=== PATIENT | female | born 1980 | race Caucasian/White ===

== ENCOUNTER 2022-12-23 14:02 | Emergency (ER) | payer MEDICARE, SELFPAY ==
[2022-12-23] VITALS (11 sets, daily range): BP systolic 127–149; BP diastolic 74–96; PULSE 67–86; RESP 14; TEMP 35.7; O2SAT 97–99; BMI 44.6
--- NOTE | 2022-12-23 14:33 | CRLHL7_ITS ---
For Patients: As a result of the Century Cures Act, medical imaging exams and procedure reports are released immediately into your electronic medical record. You may view this report before your referring provider. If you have questions, please contact your health care provider. INDICATION: Upper abdominal pain. TECHNIQUE: CT abdomen and pelvis without contrast. COMPARISON: None. FINDINGS: Lower chest: Unremarkable. Liver: Normal in size and attenuation. No suspicious masses. Gallbladder and bile ducts: Cholecystectomy. Pancreas: Unremarkable. No mass or inflammation. Spleen: Normal in size. No masses. Adrenal glands: Normal in size. No nodules. Kidneys: Normal in size. No suspicious masses, stones, or hydronephrosis. GI tract: Gastric sleeve. Normal in caliber. No sign of mass or inflammation. Normal appendix. Vasculature: Abdominal aorta is normal in caliber. Lymph nodes: No lymphadenopathy. Peritoneum/Abdominal Wall: Tiny fat containing umbilical hernia. No sign of mass or infiltration. No free air or significant free fluid. Pelvis: Hysterectomy. No pelvic masses. Bones: Unremarkable for age. IMPRESSION: Postsurgical changes of gastric bypass. No acute intra-abdominal/pelvic abnormality including drainable fluid collections or free intraperitoneal air. Please note that all CT scans at this facility use dose modulation, iterative reconstruction, and/or weight-based dosing when appropriate to reduce radiation dose to as low as reasonably achievable. Dictated by Jarad Manley MD @ 12/23/2022 5:38:50 PM (Electronically Signed)
--- NOTE | 2022-12-23 14:33 | CRLHL7_ITS ---
For Patients: As a result of the Cures Act, medical imaging exams and procedure reports are released immediately into your electronic medical record. You may view this report before your referring provider. If you have questions, please contact your health care provider. INDICATION: Chest pain. TECHNIQUE: Chest 2 views. COMPARISON: None. FINDINGS: Cardiovascular and mediastinum: Cardiomediastinal silhouette is within normal limits Lungs and pleural spaces: Lungs are clear. No sign of pleural effusion. No pneumothorax. Bones and soft tissues: No significant findings. IMPRESSION: No acute or significant findings. Dictated by Sadia Zuñiga MD @ 12/23/2022 4:22:16 PM (Electronically Signed)
--- NOTE | 2022-12-23 14:52 | ED.GENADULT ---
HPI - General Adult General Date Seen: 12/23/22 Chief complaint: Abdominal Pain Stated complaint: Dehydration, swelling, possible pancreatitis Time Seen by Provider: 12/23/22 14:09 Source: patient Mode of arrival: ambulatory Limitations: no limitations History of Present Illness HPI narrative: Patient is a 42-year-old female with a history of chronic pain syndrome, fibromyalgia, previous episode of pancreatitis secondary to gallstone presented to emergency department for abdominal pain. She states she was told to come in via provider for dehydration and possible pancreatitis. Yesterday she was having chest pain and arm numbness and EMS was called. She was brought to an outside hospital emergency department and have labs done while she was in triage next. Her symptoms improved and she is waiting for 7 hours so she left. She woke up this morning with improvement in chest pain shortness of breath was still mildly there. She is also having upper abdominal pain. She took a Toradol injection at home this morning at 06:00 she says improved his symptoms. She states she has a kind of feels like her previous pancreatitis but not exactly. Denies fevers, chills, diarrhea, constipation, dysuria. Does admit to some mild lightheadedness. Related Data Home Medications Medication Instructions Recorded Confirmed aripiprazole 20 mg tablet (Abilify) 20 mg PO DAILY 12/23/22 12/23/22 escitalopram oxalate 20 mg tablet 20 mg PO DAILY 12/23/22 12/23/22 (Lexapro) folic acid 1 mg tablet 1 mg PO DAILY 12/23/22 12/23/22 ixekizumab 80 mg/mL subcutaneous 80 mg subcut Q3W 12/23/22 12/23/22 auto-injector (Taltz Autoinjector) ketorolac 30 mg/mL injection 30 mg IM DAILY PRN 12/23/22 12/23/22 syringe lorazepam 1 mg tablet (Ativan) 1 mg PO Q12H PRN 12/23/22 12/23/22 ondansetron 4 mg disintegrating 4 mg PO BID-TID PRN 12/23/22 12/23/22 tablet tramadol 50 mg tablet 50 mg PO BID PRN 12/23/22 12/23/22 Previous Rx's Medication Instructions Recorded cephalexin 250 mg capsule 250 mg PO QID #20 caps 12/23/22 fluconazole 150 mg tablet 150 mg PO Q3D 2 doses #2 tabs 12/23/22 (Diflucan) Allergies Allergy/AdvReac Type Severity Reaction Status Date / Time adhesive Allergy Unknown Verified 12/23/22 14:09 lithium Allergy Unknown Verified 12/23/22 14:09 Penicillins Allergy Unknown Verified 12/23/22 14:09 vancomycin Allergy Unknown Rash Verified 12/23/22 14:09 amoxicillin Allergy Rash Verified 12/23/22 14:09 prednisone AdvReac Unknown Verified 12/23/22 14:09 Sulfa (Sulfonamide AdvReac Unknown Diarrhea Verified 12/23/22 14:09 Antibiotics) Review of Systems Status of ROS: Reports: 10 or more systems reviewed and unremarkable except as noted in History and below PFSH PFS Social History Smoking Status: Current some day smoker What tobacco products do you use: cigarettes Do you use any of these nicotine containing products: None Second hand tobacco smoke exposure: No How often do you have a drink containing alcohol: never How often do you have six or more drinks on one occasion: Never AUDIT-C Alcohol total score: 0 Non-prescribed substance use: marijuana (any form) Exam Narrative: Exam Narrative: Const: Well-nourished, Well-developed, in mild distress Eyes: PERRL, no conjunctival injection, and symmetrical lids HENT: Atraumatic external nose and ears. Moist mucous membranes. Neck: Symmetric, trachea midline, No thyromegaly. CVS: RRR, No murmurs or gallops. Peripheral pulses 2+ and equal in all extremities RESP: Unlabored respiratory effort. Clear to auscultation bilaterally. GI: Mild epigastric and left upper quadrant tenderness, Nondistended, No rebound or guarding. MSK:Extremities w/o deformity, Normal Active ROM Skin: Warm, Dry. No rashes or lesions. Neuro: Normal Muscle tone, No focal neurological deficits. Psych: Awake, Alert, & Oriented x3. Appropriate mood and affect. Const: Vital Signs, click to edit/add: Vital Signs - 24 hr 12/23/22 14:14 12/23/22 15:46 12/23/22 16:31 Temperature 96.2 F L Pulse Rate 85 Pulse Rate [Pulse Oximeter] 86 Respiratory Rate 14 Blood Pressure 127/77 Blood Pressure [Ri ght Upper Arm] 139/74 Pulse Oximetry 98 99 Oxygen Delivery Me thod Room Air 12/23/22 16:34 12/23/22 16:35 12/23/22 16:45 Temperature Pulse Rate 76 70 71 Pulse Rate [Pulse Oximeter] Respiratory Rate Blood Pressure 143/96 H Blood Pressure [Ri ght Upper Arm] Pulse Oximetry 99 99 98 Oxygen Delivery Me thod 12/23/22 17:00 12/23/22 17:02 12/23/22 17:15 Temperature Pulse Rate 67 70 70 Pulse Rate [Pulse Oximeter] Respiratory Rate Blood Pressure 149/94 H Blood Pressure [Ri ght Upper Arm] Pulse Oximetry 97 98 99 Oxygen Delivery Me thod Course Vital Signs Vital signs: Initial Vital Signs Temperature 96.2 F L 12/23/22 14:14 Temperature Source Temporal Artery Scan 12/23/22 14:14 Pulse Rate 86 12/23/22 14:14 Pulse Rhythm Regular 12/23/22 14:14 Respiratory Rate 14 12/23/22 14:14 Blood Pressure 139/74 12/23/22 14:14 Blood Pressure Mean 95 12/23/22 14:14 Blood Pressure Position Sitting 12/23/22 14:14 Pulse Oximetry 98 12/23/22 14:14 Oxygen Delivery Method Room Air 12/23/22 14:14 Vital Signs Temperature 96.2 F L 12/23/22 14:14 Pulse Rate 86 12/23/22 14:14 Respiratory Rate 14 12/23/22 14:14 Blood Pressure 139/74 12/23/22 14:14 Pulse Oximetry 98 12/23/22 14:14 Oxygen Delivery Method Room Air 12/23/22 14:14 Temperature 96.2 F L 12/23/22 14:14 Pulse Rate 70 12/23/22 17:15 Respiratory Rate 14 12/23/22 14:14 Blood Pressure 149/94 H 12/23/22 17:02 Pulse Oximetry 99 12/23/22 17:15 Oxygen Delivery Method Room Air 12/23/22 14:14 Medical Decision Making MDM Narrative Medical decision making narrative: Patient is a 42-year-old female presents emergency department mL going to call back from an ED physician after she left the [facility] Emergency Department before labs came back yesterday. She states she was told her that she thinks she is dehydrated might have pancreatitis. She states he still having some upper abdominal discomfort and states it feels like previous pancreatitis. She also had some chest pain yesterday that has almost completely resolved all today. Do this with 2 abdominal workup and a cardiac workup. CT scan with IV contrast was ordered. Toradol given for pain. Zofran given for nausea. Patient's CBC and CMP showed no concerning abnormalities. Lipase is within normal limits. Unlikely to be pancreatitis at this time. Do not see any signs of liver disease. No other clear signs of infection. Electrolytes within normal limits. Troponin within normal limits. EKG also looks normal in ACS seems unlikely at this time. The patient IV staff working while and CT scan. They tried multiple times to place a new IV and were unsuccessful. Due to this she got CT without contrast. CT shows no concerning abnormalities. Her urinalysis does show signs of a UTI. We will treat her for this. This could be the cause of her symptoms. She states when she gets antibiotics she develops a yeast infection and will be given Diflucan also Lab Data Labs: Lab Results 12/23/22 12/23/22 12/23/22 Range/Units 14:50 15:00 15:10 WBC 5.40 (4.50-11.00) K/uL RBC 4.05 (4.00-5.20) m/uL Hgb 13.4 (12.0-16.0) gm/dL Hct 40.6 (33.0-51.0) % MCV 100 (80-100) fL MCH 33 (26-34) pg MCHC 33 (32-36) gm/dL RDW Coeff of [place] 12.8 (11.5-15.5) % Plt Count 178 (140-440) K/uL Neut % (Auto) 59.8 (42.0-72.0) % Lymph % (Auto) 31.9 (20-44) % [place] % (Auto) 8.1 (0.0-11.0) % Eos % (Auto) 0.0 (0.0-7.0) % Baso % (Auto) 0.0 (0.0-3.0) % Neut # (Auto) 3.23 (1.7-7.0) K/uL Lymph # (Auto) 1.72 (0.90-2.90) K/uL [place] # (Auto) 0.40 (0.00-0.90) K/UL Eos # (Auto) 0.00 (0.00-0.50) K/uL Baso # (Auto) 0.00 (0.00-0.30) K/uL Abs Immat Gran (auto) 0.01 (0.00-0.30) K/uL Imm/Tot Granulo (auto) 0.2 % Sodium 140 (135-149) mmol/L Potassium 4.0 (3.6-5.1) mmol/L Chloride 107 (96-114) mmol/L Carbon Dioxide 26 (20-32) mmol/L Anion Gap 7 (7-15) mEq/L BUN 15 (5-24) mg/dL Creatinine 0.8 (0.5-1.5) mg/dL Estimated Creat Clear 80.75 Estimated GFR 93 ml/min Glucose 83 (60-115) mg/dL Calcium 9.1 (8.4-10.6) mg/dL Magnesium 2.2 (1.5-2.6) mg/dL Total Bilirubin 0.4 (0.1-1.5) mg/dL AST 34 (12-35) U/L ALT 27 (4-35) U/L Alkaline Phosphatase 101 (40-150) U/L Troponin I < 0.01 L (0.01-0.04) ng/mL Total Protein 6.9 (6.0-8.3) g/dL Albumin 4.1 (3.3-5.0) g/dL Lipase 183 (23-300) U/L Urine Color Yellow (Yellow) Urine Appearance Cloudy A (Clear) Urine pH 6.0 (5.0-8.5) Ur Specific [place] >= 1.030 (1.000-1.030) Urine Protein 2+ A (Negative) Urine Glucose (UA) Negative (Negative) Urine Ketones 1+ A (Negative) Urine Blood Negative (Negative) Urine Nitrite Positive A (Negative) Urine Bilirubin 1+ A (Negative) Urine Urobilinogen 1.0 (0.2-1.0) Ur Leukocyte Esterase Negative (Negative) Urine RBC 0-2 (0-2) Urine WBC 2-5 (0-5) Ur Squamous Epith Cells Moderate A (None-Few) Urine Bacteria Many A (None) Imaging Data CT scan abdomen and pelvis: Radiologist's impression: INDICATION: Upper abdominal pain. TECHNIQUE: CT abdomen and pelvis without contrast. COMPARISON: None. FINDINGS: Lower chest: Unremarkable. Liver: Normal in size and attenuation. No suspicious masses. Gallbladder and bile ducts: Cholecystectomy. Pancreas: Unremarkable. No mass or inflammation. Spleen: Normal in size. No masses. Adrenal glands: Normal in size. No nodules. Kidneys: Normal in size. No suspicious masses, stones, or hydronephrosis. GI tract: Gastric sleeve. Normal in caliber. No sign of mass or inflammation. Normal appendix. Vasculature: Abdominal aorta is normal in caliber. Lymph nodes: No lymphadenopathy. Peritoneum/Abdominal Wall: Tiny fat containing umbilical hernia. No sign of mass or infiltration. No free air or significant free fluid. Pelvis: Hysterectomy. No pelvic masses. Bones: Unremarkable for age. IMPRESSION: Postsurgical changes of gastric bypass. No acute intra-abdominal/pelvic abnormality including drainable fluid collections or free intraperitoneal air. Please note that all CT scans at this facility use dose modulation, iterative reconstruction, and/or weight-based dosing when appropriate to reduce radiation dose to as low as reasonably achievable. Dictated by Jarad Manley MD @ 12/23/2022 5:38:50 PM Chest x-ray: Radiologist's impression: INDICATION: Chest pain. TECHNIQUE: Chest 2 views. COMPARISON: None. FINDINGS: Cardiovascular and mediastinum: Cardiomediastinal silhouette is within normal limits Lungs and pleural spaces: Lungs are clear. No sign of pleural effusion. No pneumothorax. Bones and soft tissues: No significant findings. IMPRESSION: No acute or significant findings. Dictated by Sadia Zuñiga MD @ 12/23/2022 4:22:16 PM ECG Data Attestation: I personally reviewed and interpreted this ECG as follows: Interpretation: Normal sinus rhythm with a rate of 89 beats per minute, normal intervals, normal axis, no ST or T-wave abnormalities Discharge Plan Discharge Clinical Impression: UTI (urinary tract infection) Qualifiers: Urinary tract infection type: site unspecified Hematuria presence: without hematuria Qualified Code(s): N39.0 - Urinary tract infection, site not specified Patient Disposition: Home, Self-Care Condition: Stable Instructions: Urinary Tract Infection in Women (DC) Prescriptions: New cephalexin 250 mg capsule 250 mg PO QID Qty: 20 0RF fluconazole [Diflucan] 150 mg tablet 150 mg PO Q3D Qty: 2 0RF No Action lorazepam [Ativan] 1 mg tablet 1 mg PO Q12H PRN ketorolac 30 mg/mL syringe 30 mg IM DAILY PRN tramadol 50 mg tablet 50 mg PO BID PRN ondansetron 4 mg tablet,disintegrating 4 mg PO BID-TID PRN Taltz Autoinjector 80 mg/mL auto-injector 80 mg subcut Q3W escitalopram oxalate [Lexapro] 20 mg tablet 20 mg PO DAILY aripiprazole [Abilify] 20 mg tablet 20 mg PO DAILY folic acid 1 mg tablet 1 mg PO DAILY Follow Up/Referrals: Provider,Not a Local [Primary Care Provider] - Stand Alone Forms: [facility] Info Instructions
[2022-12-23] MEDS: KETOROLAC 15 MG/ML inj IVP ×2 (15:16→17:26)
[2022-12-23 15:18] LABS: Hematocrit 40.6 % (33.0-51.0); Hemoglobin* 13.4 gm/dL (12.0-16.0); Immature Granulocytes Pct Auto 0.2 %; Lymphocytes Percent Auto 31.9 % (20-44); Mean Corpuscular HGB Conc 33 gm/dL (32-36); Mean Corpuscular Hemoglobin 33 pg (26-34); Mean Corpuscular Volume 100 fL (80-100); Monocytes Percent Auto 8.1 % (0.0-11.0); Neutrophils Percent Auto 59.8 % (42.0-72.0); Platelet Count* 178 K/uL (140-440); RDW Coefficient of Variation % 12.8 % (11.5-15.5); Red Blood Count 4.05 m/uL (4.00-5.20)
[2022-12-23 15:19] LABS: Immature Granulocytes Abs Auto 0.01 K/uL (0.00-0.30); Lymphocytes Absolute Auto 1.72 K/uL (0.90-2.90); Neutrophils Absolute Auto 3.23 K/uL (1.7-7.0)
[2022-12-23 15:20] LABS: Appearance Urine Cloudy (Clear); Bilirubin Urine 1+ (Negative); Blood Urine Negative (Negative); Color Urine Yellow (Yellow); Glucose Urine Negative (Negative); Ketones Urine 1+ (Negative); Leukocyte Esterase Urine Negative (Negative); Nitrite Urine Positive (Negative); Protein Urine 2+ (Negative); Specific Gravity Urine >= 1.030 (1.000-1.030)
[2022-12-23 15:23] LABS: Slide Review Reflex No
[2022-12-23 15:26] LABS: RBC Urine 0-2 (0-2); Squamous Epithelial Cell Urine Moderate (None-Few)
[2022-12-23 15:27] LABS: Bacteria Urine Many
[2022-12-23 15:35] LABS: Albumin* 4.1 g/dL (3.3-5.0)
[2022-12-23 15:36] LABS: Chloride* 107 mmol/L (96-114); Sodium* 140 mmol/L (135-149)
[2022-12-23] MEDS: ONDANSETRON 2 MG/ML inj 4 MG IVP (15:36)
[2022-12-23 15:38] LABS: Magnesium* 2.2 mg/dL (1.5-2.6)
[2022-12-23 15:38] LABS: Alkaline Phosphatase* 101 U/L (40-150); Anion Gap 7 mEq/L (7-15); Aspartate Amino Transferase* 34 U/L (12-35); Bilirubin Total* 0.4 mg/dL (0.1-1.5); Blood Urea Nitrogen* 15 mg/dL (5-24); Carbon Dioxide* 26 mmol/L (20-32); Creatinine* 0.8 mg/dL (0.5-1.5); Est. Creatinine Clearance* 80.75; Estimated Glomerular Filt Rate 93 ml/min; Total Protein* 6.9 g/dL (6.0-8.3)
[2022-12-23 15:39] LABS: Alanine Aminotransferase* 27 U/L (4-35); Calcium* 9.1 mg/dL (8.4-10.6); Glucose* 83 mg/dL (60-115); Lipase* 183 U/L (23-300)
[2022-12-23] MEDS: LACTATED RINGERS 1000 ML 1,000 ML IV (15:39)
[2022-12-23 15:49] LABS: Troponin I* < 0.01 ng/mL (0.01-0.04)
--- NOTE | 2022-12-23 16:25 | ED.NURSE ---
CT unable to push contrast through 22G L AC IV. Attempted additional IV start x2 but was unsuccessful. Per sangita Lew to complete CT abdomen without contrast.
[2022-12-24 09:51] LABS: Ur HCG Qualitative* Negative (Negative)
== END 2022-12-23 18:21 | disposition home or self-care (01) ==
PROVIDERS: Emergency Provider Student in an Organized Health Care Education/Training Program
DX: N39.0 Urinary tract infection, site not specified (principal)
CPT/HCPCS: 36415; 71046; 74176; 80053; 81001; 81025; 83690; 83735; 84484; 85025; 87086; 87186; 93005; 96374; 96375; 96376; 99283; 99284; 99285; J1885; J2405; J7120

== ENCOUNTER 2023-01-15 08:21 | Emergency (ER) | payer MEDICARE, SELFPAY ==
[2023-01-15 08:23] VITALS: BP 115/63; PULSE 90; RESP 18; TEMP 35.9; O2SAT 97; BMI 44.6
--- NOTE | 2023-01-15 08:43 | ED_ITS ---
HPI - SOB/Dyspnea General Time Seen by Provider: 08:43 Date Seen: 01/15/23 Chief Complaint: Shortness of Breath/Dyspnea Stated Complaint: COVID +, trouble breathing Time Seen by Provider: 01/15/23 08:43 Source: patient and RN notes reviewed Mode of arrival: ambulatory Limitations: no limitations History of Present Illness HPI Narrative: This 42-year-old female with underlying asthma is coming in feeling short of breath and coughing with COVID positive test yesterday. Today is , Thursday night she states she started with symptoms that hit her like a 10 of bricks. She has a severe headache, she feels like her body is painful and feels like glass, is coughing, states the cough is productive. She is having fevers and chills. She is also having nausea vomiting with this, no diarrhea yet. She has Zofran at home, last took it last night to take her Belbuca. She has not tried any since. She is wondering about IV fluids. She would consider taking P axlovid. At home this morning her pulse oximeter read 90-91%, she does have acrylic nails on. She is upper 90s here with a good waveform, will continue to monitor while here. She does have underlying asthma, states she has been doing albuterol nebs. MD elicited complaint: shortness of breath Related Data Home oxygen amount: none Home Medications Medication Instructions Recorded Confirmed aripiprazole 20 mg tablet (Abilify) 20 mg PO DAILY 12/23/22 01/15/23 escitalopram oxalate 20 mg tablet 20 mg PO DAILY 12/23/22 01/15/23 (Lexapro) folic acid 1 mg tablet 1 mg PO DAILY 12/23/22 01/15/23 ixekizumab 80 mg/mL subcutaneous 80 mg subcut Q3W 12/23/22 01/15/23 auto-injector (Taltz Autoinjector) ketorolac 30 mg/mL injection 30 mg IM DAILY PRN 12/23/22 01/15/23 syringe lorazepam 1 mg tablet (Ativan) 1 mg PO Q12H PRN 12/23/22 01/15/23 ondansetron 4 mg disintegrating 4 mg PO BID-TID PRN 12/23/22 01/15/23 tablet albuterol sulfate 2.5 mg/3 mL 1 Q4H PRN wheezing 01/15/23 (0.083 %) solution for nebulization albuterol sulfate 90 mcg/actuation 1 - 2 puff inhalation Q4H 01/15/23 01/15/23 aerosol inhaler aripiprazole 400 mg intramuscular 400 mg IM Q4W 01/15/23 01/15/23 suspension,extended release (Abilifrené Maintena) aripiprazole 400 mg suspension, 400 mg IM Q4W 01/15/23 01/15/23 extended rel.intramuscular syringe (Abiliy Maintena) buprenorphine HCl 75 mcg buccal 75 mcg buccal BID 01/15/23 01/15/23 film (Belbuca) ipratropium 0.5 mg-albuterol 3 mg 1 inhalation Q6H PRN wheezing 01/15/23 (2.5 mg base)/3 mL nebulization soln mometasone-formoterol HFA 200 2 puff inhalation BID 01/15/23 01/15/23 mcg-5 mcg/actuation aerosol inhaler (Dulera) naloxone 4 mg/actuation nasal spray intranasal 01/15/23 nicotine (polacrilex) 2 mg gum 2 mg PO nicotine cravings 01/15/23 olanzapine 10 mg disintegrating 10 mg PO QPM 01/15/23 01/15/23 tablet olanzapine 10 mg tablet 10 mg PO QPM PRN 01/15/23 01/15/23 triamcinolone acetonide 0.1 % applic topical BID 01/15/23 topical cream Allergies Allergy/AdvReac Type Severity Reaction Status Date / Time adhesive Allergy Unknown Verified 01/15/23 08:29 lithium Allergy Unknown Verified 01/15/23 08:29 Penicillins Allergy Unknown Verified 01/15/23 08:29 vancomycin Allergy Unknown Rash Verified 01/15/23 08:29 amoxicillin Allergy Rash Verified 01/15/23 08:29 prednisone AdvReac Unknown Verified 01/15/23 08:29 Sulfa (Sulfonamide AdvReac Unknown Diarrhea Verified 01/15/23 08:29 Antibiotics) Review of Systems Status of ROS: Reports: 6 or more systems reviewed and unremarkable except as noted in History and below [facility] Medical History Arthritis of sacroiliac joint ?M47.818 - Spondylosis without myelopathy or radiculopathy, sacral and sacrococcygeal region (ICD-10) Psoriasis ?L40.9 - Psoriasis, unspecified (ICD-10) Asthma ?J45.909 - Unspecified asthma, uncomplicated (ICD-10) Chronic pain ?G89.29 - Other chronic pain (ICD-10) Fibromyalgia ?M79.7 - Fibromyalgia (ICD-10) Social History Smoking Status: Current some day smoker What tobacco products do you use: cigarettes Do you use any of these nicotine containing products: None Second hand tobacco smoke exposure: No How often do you have a drink containing alcohol: never How often do you have six or more drinks on one occasion: Never AUDIT-C Alcohol total score: 0 Non-prescribed substance use: marijuana (any form) Exam Const: Vital Signs, click to edit/add: Vital Signs - 24 hr 01/15/23 08:23 Temperature 96.7 F L Pulse Rate [Left P ulse Oximeter] 90 Respiratory Rate 18 Blood Pressure [Ri ght Upper Arm] 115/63 Pulse Oximetry 97 Oxygen Delivery Me thod Room Air 42-year-old female is sitting in the exa m bed in room on. She is alert, interactive, no apparent distress. Conjugate gaze, sclera clear, symmetrical facial function. She is able to speak in complete sentences, voice is normal, no hoarseness. Lungs are clear with good air entry, no wheezing or crackles, no tachypnea. CV regular rate and rhythm, no murmur, normal S1 and S2. O2 sats are 97% on intake, will have nursing staff continue to monitor on pulse oximetry while here. Documenting provider has reviewed patient's vital signs: yes Course Course ED Course: Patient will be monitored on pulse oximetry to ensure no hypoxia. She is interested in taking the oral treatment Paxlovid, will run her medicines through the interaction shipping checker. Will establish an IV, give her a L of IV fluids and 4 mg IV Zofran. Will get a portable chest x-ray just to ensure that she is not developing any early symptomatology of COVID pneumonia. Reevaluation(s) Time of Reevaluation #1: 10:29 Reevaluation #1: Have reviewed with Cayla that is recommended for dose reduction with the Abilify but does not give recommendations on what to do with the medicine. They recommend this be done through expert consultation with mental health. She follows at [facility]. She is adamant that she does not want to mess with her psychiatric medications and is now declining Paxlovid. If she is able to talk to her psychiatrist today and make a plan for the Abilify, I would be happy to prescribe this. She knows that I only work until 4pm. She had covid last year and was pretty ill for about 10 days. Hopefully this time will be shorter duration since her body has seen this virus before. We did review that her chest x-ray is normal, no evidence of any COVID changes at this time. She show no evidence of any hypoxia here, is not wheezing. Consultations Consultation #1: Just spent 5 minutes reviewing her drugs and potential interaction with the [facility] COVID shipping checker. There is dose adjustment recommended with the Abilify but does not give recommendations, is recommended to be instructed by mental health provider. Three days after the Paxlovid is done the usual dosage should be fine. With her Belbuca, there is possibly potential week interaction but is not thought to be significant. Her Lexapro, her Taltz, Ketoralac, lorazepam, olanzapine should all be fine. I will review this with her. Time: 10:22 Vital Signs Vital signs: Initial Vital Signs Temperature 96.7 F L 01/15/23 08:23 Temperature Source Temporal Artery Scan 01/15/23 08:23 Pulse Rate 90 01/15/23 08:23 Respiratory Rate 18 01/15/23 08:23 Respiratory Effort Normal, Spontaneous, Non-Labored 01/15/23 08:23 Respiratory Depth Normal 01/15/23 08:23 Respiratory Pattern Normal 01/15/23 08:23 Blood Pressure 115/63 01/15/23 08:23 Blood Pressure Mean 80 01/15/23 08:23 Blood Pressure Position Sitting 01/15/23 08:23 Pulse Oximetry 97 01/15/23 08:23 Oxygen Delivery Method Room Air 01/15/23 08:23 Vital Signs Temperature 96.7 F L 01/15/23 08:23 Pulse Rate 90 01/15/23 08:23 Respiratory Rate 18 01/15/23 08:23 Blood Pressure 115/63 10/26/23 08:23 Pulse Oximetry 97 01/15/23 08:23 Oxygen Delivery Method Room Air 01/15/23 08:23 Temperature 96.7 F L 01/15/23 08:23 Pulse Rate 90 01/15/23 08:23 Respiratory Rate 18 01/15/23 08:23 Blood Pressure 115/63 01/15/23 08:23 Pulse Oximetry 97 01/15/23 08:23 Oxygen Delivery Method Room Air 01/15/23 08:23 Discharge Plan Discharge Clinical Impression: COVID-19 Patient Disposition: Home, Self-Care Condition: Stable Instructions: COVID-19 (Coronavirus Disease 2019) (ED) Additional Instructions: Recommend small sips of fluids every 5-10 minutes while awake to help keep you hydrated. Can use your Zofran at home that you have to help control nausea and vomiting. Need to quarantine per CDC guidelines. Your oxygenation was good here. If oxygenation is dropping below 90 and is consistently staying below 90, we do need to re-evaluate you. Review handout provided. Activity Level: Activity as Tolerated Prescriptions: No Action lorazepam [Ativan] 1 mg tablet 1 mg PO Q12H PRN ketorolac 30 mg/mL syringe 30 mg IM DAILY PRN ondansetron 4 mg tablet,disintegrating 4 mg PO BID-TID PRN Taltz Autoinjector 80 mg/mL auto-injector 80 mg subcut Q3W escitalopram oxalate [Lexapro] 20 mg tablet 20 mg PO DAILY aripiprazole [Abilify] 20 mg tablet 20 mg PO DAILY folic acid 1 mg tablet 1 mg PO DAILY ipratropium-albuterol 0.5 mg-3 mg(2.5 mg base)/3 mL solution for nebulization 1 INHALATION Q6H PRN (Reason: wheezing) albuterol sulfate 2.5 mg /3 mL (0.083 %) solution for nebulization 1 Q4H PRN (Reason: wheezing) nicotine (polacrilex) 2 mg gum 2 mg PO olanzapine 10 mg tablet 10 mg PO QPM PRN triamcinolone acetonide 0.1 % cream topical BID olanzapine 10 mg tablet,disintegrating 10 mg PO QPM albuterol sulfate 90 mcg/actuation HFA aerosol inhaler 1 - 2 puff INHALATION Q4H Dulera 200-5 mcg/actuation HFA aerosol inhaler 2 puff INHALATION BID Abilify Maintena 400 mg suspension,extended rel recon 400 mg IM Q4W Abilify Maintena 400 mg suspension,extended rel syring 400 mg IM Q4W buprenorphine HCl [Belbuca] 75 mcg film 75 mcg BUCCAL BID naloxone 4 mg/actuation spray,non-aerosol INTRANASAL Patient Comments: CALL 911. SPR CONTENTS OF ONE SPRAYER (0.1ML) INTO ONE NOSTRIL. REPEAT IN 2-3 MIN IF SYMPTOMS OF OPIOID EMERGENCY PERSIST, ALTERNATE NOSTRILS Follow Up/Referrals: Provider,Not a Local [Referring] - Stand Alone Forms: [facility]
[2023-01-15 08:51] VITALS: O2SAT 99
--- NOTE | 2023-01-15 08:51 | CRLHL7_ITS ---
For Patients: As a result of the Century Cures Act, medical imaging exams and procedure reports are released immediately into your electronic medical record. You may view this report before your referring provider. If you have questions, please contact your health care provider. INDICATION: Dyspnea. Asthma. COVID. COMPARISON: January 19, 2023 TECHNIQUE: Single-view study obtained is in AP image FINDINGS: TUBES AND LINES: None. HEART AND MEDIASTINUM: The heart size is normal. The mediastinal contour appears normal for patient age. LUNGS AND PLEURAL SPACES: The lungs appear normal.The pleural spaces are unremarkable. OSSEOUS STRUCTURES: Age-appropriate appearance. No acute focal finding. IMPRESSION: Normal single-view chest radiograph. Dictated by Lamont Bustamante MD @ 01/15/2023 9:40:31 AM (Electronically Signed)
[2023-01-15] MEDS: ONDANSETRON 2 MG/ML inj 4 MG IVP (09:14)
[2023-01-15] MEDS: 0.9 % SODIUM CHLORIDE 1000 ml 1,000 ML IV (09:15)
--- NOTE | 2023-01-15 09:34 | ED.NURSE ---
portable CXR done and patient is c/o pain in the lower arm and wanted the fluids to stop. so disconnected the fluids and patient felt better. assessed the IV site and patient wants to wait and is ok with not getting the rest of the fluids,stated I did get the Zofran. given some water to sip on to see how that goes.
[2023-01-15 10:23] VITALS: O2SAT 100
[2023-01-15] MEDS: ONDANSETRON ODT 4 MG TAB PO (10:32)
== END 2023-01-15 10:48 | disposition home or self-care (01) ==
PROVIDERS: Emergency Provider Family Medicine; PCP Family Medicine
DX: U07.1 COVID-19 (principal)
CPT/HCPCS: 71045; 94761; 96374; 99284; A9270; J2405; J7030